=== PATIENT | female | born 1990 | race Caucasian/White ===

== ENCOUNTER 2023-01-21 23:23 | Observation (INO) ==
[2023-01-22] MEDS ORDERED: Morphine 2 MG/ML SYRINGE IV PRN (00:36)
[2023-01-22 01:57] LABS: ABS Lymphocytes 0.6 10^3/ul (1.0-4.8); ABS Monocytes 0.2 10^3/ul (0-0.8); ABS Neutrophils 10.5 10^3/ul (1.5-7.7); Hematocrit 42 % (35-47); Hemoglobin 14.2 g/dL (12.0-16.0); Lymphocyte % 4.9 %; Mean Corpuscular HGB Conc 34 g/dL (31-36); Mean Corpuscular Hemoglobin 30 pg (27-31); Mean Corpuscular Volume 89 fL (80-97); Mean Platelet Volume 8.1 fL (7.4-10.4); Platelet Count 214 10^3/uL (150-450); Red Blood Count 4.76 10^6 /uL (3.70-4.87); Red Cell Distribution Width 13 % (10-15); White Blood Count 11.3 10^3/uL (3.5-10.8)
[2023-01-22] MEDS ORDERED: Clindamycin 600 MG/D5W BAG 600 MG/50 ML BAG IV SCH (03:00)
[2023-01-22 03:30] LABS: Albumin 4.1 g/dL (3.2-5.2); Albumin/Globulin Ratio 1.3 (1-3); C Reactive Protein 151.63 mg/L (<8.01); Calcium 9.5 mg/dL (8.6-10.3); Creatinine, Serum 0.83 mg/dL (0.51-0.95); Globulin 3.1 g/dL (2-4); Potassium 4.6 mmol/L (3.5-5.0); Total Bilirubin 0.5 mg/dL (0.2-1.0); Total Protein 7.2 g/dL (6.4-8.9); eGFR CKD-EPI 95.4 (>60)
[2023-01-22 04:11] LABS: Erythrocyte Sed Rate 44 mm/Hr (0-19)
[2023-01-22] MEDS ORDERED: metroNIDAZOLE IV 500 MG/100ML 500 MG/100 ML BAG IVPB SCH (06:00)
[2023-01-22] MEDS ORDERED: Dexamethasone IV 4 MG/ML VIAL 1 ml VIAL IV SLOW PU SCH (06:00)
[2023-01-22] MEDS ORDERED: Nicotine PATCH 14 MG/24 HR PATCH TRANSDERM SCH ×2 (06:17→09:00)
[2023-01-22 10:33] VITALS: BP 122/81
[2023-01-22] MEDS ORDERED: cefTRIAXone 1 gm/50 mL D5W 1 GM/50 ML BAG IV SCH (21:00)
== END 2023-01-22 12:25 | disposition home or self-care (01) ==
LOC: ED 23:23 → MED 23:23
PROVIDERS: ADMIT Student in an Organized Health Care Education/Training Program; ATTEND Student in an Organized Health Care Education/Training Program